=== PATIENT | female | born 1950 | race Caucasian/White ===

== ENCOUNTER 2017-10-30 12:34 | Day surgery (SDC) | payer MEDICARE ==
[2017-10-29 11:56] VITALS: BMI 43.9
[~2017-10-30 12:34] MED LIST: Lidocaine 1% PF 5 ML VIAL ONE; Metoclopramide HCl 10 MG/2 ML VIAL ONE; Ondansetron HCl/PF 4 MG/2 ML Vial ONE; PROPOFOL 200 MG/20 ML VIAL ONE; Succinylcholine Chloride 20 MG/ML 10 ml SYRINGE FS ONE; ePHEDrine/0.9% NaCl/PF SYRINGE 50 mg/10 ml ONE
[2017-10-30 13:20] LABS: Hemoglobin 13.1 g/dL (12.0-16.0)
[2017-10-30 13:52] LABS: Anion Gap 14 mmol/L (10-20); BUN (Urea Nitrogen) 21 mg/dL (9.8-20.1); Calc. Creatinine Clearance 97 mL/min (70-130); Calcium 8.9 mg/dL (7.8-10.44); Carbon Dioxide 25 mmol/L (23-31); Chloride 104 mmol/L (98-107); Estimated GFR-MDRD 56; Glucose 116 mg/dL (80-115); Potassium 3.8 mmol/L (3.5-5.1); Sodium 139 mmol/L (136-145)
[2017-10-30] MEDS ORDERED: Lidocaine 1% w/Epinephrine 1:200K 30 ML VIAL ONE (15:41)
[2017-10-30] MEDS ORDERED: Midazolam HCl 2 mg/2 ml Vial ONE (15:52)
[2017-10-30] MEDS ORDERED: Fentanyl 100 MCG/2 ML VIAL ONE ×2 (15:52→18:21)
[2017-10-30] MEDS ORDERED: HYDROcodone/Acetaminophen 7.5/325 mg Tablet PO PRN ×2 (18:20→18:21)
[2017-10-30] MEDS ORDERED: Promethazine HCl 25 MG/ML VIAL SLOW IVP PRN (18:22)
[2017-10-30] MEDS ORDERED: Ondansetron HCl/PF 4 MG/2 ML Vial IVP PRN (18:25)
[2017-10-30] MEDS ORDERED: Promethazine HCl 25 MG/ML VIAL IM/IV PRN (18:25)
[2017-10-30] MEDS ORDERED: HYDROmorphone 2 MG/ML VIAL SLOW IVP PRN (18:25)
[2017-10-30] MEDS ORDERED: Non-Formulary Medication 1 EACH PO PRN (18:25)
[2017-10-30] MEDS ORDERED: Prevnar 13-Val Conj/PF 0.5 ML SYRINGE IM ONE (19:45)
[2017-10-30] MEDS: D5 1/4 NS 1,000 ML IV SCH (21:35)
--- NOTE | 2017-10-30 21:52 | EKG ---
Test Reason : PREOP Blood Pressure : / mmHG Vent. Rate : 065 BPM Atrial Rate : 065 BPM P-R Int : 142 ms QRS Dur : 092 ms QT Int : 452 ms P-R-T Axes : 016 -04 030 degrees QTc Int : 470 ms Sinus rhythm with Premature supraventricular complexes Otherwise normal ECG Confirmed by ZEE VALERIO ([id number]) on 10/30/2017 9:51:34 PM Referred By: EMMANUELLE Confirmed By:ZEE VALERIO
[2017-10-31] MEDS ORDERED: Levothyroxine Sodium 100 MCG TAB PO SCH (06:00)
[2017-10-31] MEDS ORDERED: metFORMIN 500 MG TAB PO SCH (08:00)
[2017-10-31 08:12] VITALS: BP 109/68; TEMP 98.4
[2017-10-31] MEDS ORDERED: Ferrous Gluconate 324 MG TAB PO SCH (09:00)
[2017-10-31] MEDS ORDERED: hydrALAZINE 25 MG TAB PO SCH (09:00)
[2017-10-31] MEDS ORDERED: Losartan 25 MG TAB PO SCH (09:00)
[2017-10-31] MEDS ORDERED: Alogliptin 25 MG TAB PO SCH (09:00)
[2017-10-31] MEDS ORDERED: Amlodipine 5 MG TAB PO SCH (09:00)
[2017-10-31] MEDS: D5 1/4 NS 1,000 ML IV SCH (10:21)
[2017-10-31] MEDS ORDERED: Aspirin 81 mg Enteric Coated Tablet PO SCH (21:00)
[2017-10-31] MEDS ORDERED: Glimepiride 2 MG TAB PO SCH (21:00)
[2017-10-31] MEDS ORDERED: Rosuvastatin 10 MG TAB PO SCH (21:00)
--- NOTE | 2017-11-03 09:40 | OP ---
DATE OF PROCEDURE: 10/30/2017 SURGEON: Dr. Sadi Molina PREOPERATIVE DIAGNOSES: 1. Bilateral thyroid nodules. 2. Family history of thyroid malignancy. 3. Multinodular goiter. POSTOPERATIVE DIAGNOSES: 1. Bilateral thyroid nodules. 2. Family history of thyroid malignancy. 3. Multinodular goiter. PROCEDURE PERFORMED: Total laryngectomy with laryngeal nerve monitoring. PROCEDURE IN DETAIL: After consent was obtained, the patient was identified, brought to the operatin g room and placed on the table in supine position. General endotracheal anesthesia with laryngeal ne rve monitoring endotracheal tube was obtained. The patient was positioned for surgery. The patient was prepped and draped with the patient in the supine position. We then proceeded with surgery. We identified the natural skin crease and made an incision after it was infiltrated with 1% lidocaine wi th 1:100,000 epinephrine. The skin incision was carried down through the skin, subcutaneous tissues. We then transected the platysma muscle and raised subplatysmal inferiorly and superiorly based subp latysmal flaps and placed a self-retaining retractor. The strap muscles were then divided in midline and the thyroid was dissected between the strap muscles and the thyroid capsule. We then methodical ly retracted the left thyroid medially and identified the inferior, middle, and superior vessels and suture ligated them. We then identified the recurrent laryngeal nerve and the parathyroid glands and cautiously dissected the thyroid away from the vital structures. Ultimately, the thyroid capsule an d the thyroid ligament was transected and we turned our attention to the contralateral side where bradley ntical findings were encountered. Again, the superior and middle and inferior vessels were divided a nd suture ligated. The recurrent laryngeal nerve was identified as were the parathyroid glands and c aution was used not to injure them while we dissected thyroid from the pretracheal plane. Ultimately the thyroid ligament was transected and the thyroid was liberated and mobilized and delivered from t he wound. Hemostasis was then obtained and Valsalva was performed to make sure no additional bleedin g was encountered. Self-contained suction drain was then placed and sutured through the skin, suture secured, and the wound was closed in layers with Monocryl to close the platysma and the subcutaneous tissue and 6-0 Prolene for the skin. A sterile bandage was applied. The patient was awakened, extu bated, and taken to recovery where she remained in stable condition prior to discharge home. [place]:
== END 2017-10-31 10:00 | disposition home or self-care (01) ==
LOC: SDC 12:34 → SURG A 19:16 → SDC 10-31 10:00
PROVIDERS: ATTEND Specialist
PROC: 0CTS0ZZ Resection of Larynx, Open Approach (ICD-10-PCS; principal; 2017-10-30)
PROC: 0GTK0ZZ Resection of Thyroid Gland, Open Approach (ICD-10-PCS; 2017-10-30)
PROC: 0GBJ0ZZ Excision of Thyroid Gland Isthmus, Open Approach (ICD-10-PCS; 2017-10-30)
DX: E04.2 Nontoxic multinodular goiter (principal); E04.1 Nontoxic single thyroid nodule; E11.9 Type 2 diabetes mellitus without complications; I10 Essential (primary) hypertension; D64.9 Anemia, unspecified; Z79.84 Long term (current) use of oral hypoglycemic drugs; Z79.82 Long term (current) use of aspirin; Z79.899 Other long term (current) drug therapy; Z90.710 Acquired absence of both cervix and uterus; Z98.891 History of uterine scar from previous surgery; Z98.890 Other specified postprocedural states
CPT/HCPCS: 36415; 36416; 80048; 82310; 85014; 85018; 88307; 93005; 93010; 96374; J2001; J2250; J2405; J2704; J2765; J3010; J7042

== ENCOUNTER 2019-05-28 15:09 | Outpatient (CLI) | payer MEDICARE ==
--- NOTE | 2019-06-02 15:03 | MMO ---
Bilateral MAMMO Bilat Screen [facility]. CLINICAL HISTORY: Patient is 69 years old and is seen for screening. The patient has no family history of breast cancer. The patient has no personal history of cancer. VIEWS: The views performed were: bilateral craniocaudal with tomosynthesis and bilateral mediolateral oblique with tomosynthesis. FILMS COMPARED: The present examination has been compared to prior imaging studies performed at [facility] on 09/17/2013, 09/20/2014 and 09/19/2015. MAMMOGRAM FINDINGS: There are scattered fibroglandular densities. There are stable benign appearing calcifications seen in the right breast. There are no suspicious masses, suspicious calcifications, or new areas of architectural distortion. IMPRESSION: THERE IS NO MAMMOGRAPHIC EVIDENCE OF MALIGNANCY. A ROUTINE FOLLOW-UP MAMMOGRAM IN 1 YEAR IS RECOMMENDED. THE RESULTS OF THIS EXAM WERE SENT TO THE PATIENT. ACR BI-RADS Category 2 - Benign finding MAMMOGRAPHY NOTE: 1. A negative mammogram report should not delay a biopsy if a dominant of clinically suspicious mass is present. 2. Approximately 10% to 15% of breast cancers are not detected by mammography. 3. Adenosis and dense breasts may obscure an underlying neoplasm. Reported by: ERVIN WAYNE MD Electonically Signed: [id number]
== END 2019-05-28 15:10 | disposition home or self-care (01) ==
LOC: BICMAMMO 15:09
PROVIDERS: ATTEND Family Medicine
DX: Z12.31 Encounter for screening mammogram for malignant neoplasm of breast (principal)
CPT/HCPCS: 77063; 77067

== ENCOUNTER 2024-10-13 13:31 | Outpatient (CLI) | payer MEDICARE | END 2024-10-13 13:32 | disposition home or self-care (01) | LOC: BICMAMMO 13:31 | PROVIDERS: ATTEND Family Medicine | DX: Z13.820 Encounter for screening for osteoporosis (principal); M85.89 Other specified disorders of bone density and structure, multiple sites | CPT/HCPCS: 77080 ==

== ENCOUNTER 2025-07-05 15:07 | Outpatient (CLI) | payer MEDICARE | END 2025-07-05 15:08 | disposition home or self-care (01) | LOC: BICMAMMO 15:07 | PROVIDERS: ATTEND Family Medicine | DX: Z12.31 Encounter for screening mammogram for malignant neoplasm of breast (principal); Z85.850 Personal history of malignant neoplasm of thyroid | CPT/HCPCS: 77063; 77067 ==